=== PATIENT | female | born 1935 | race Caucasian/White ===

== ENCOUNTER 2017-10-17 05:15 | Day surgery (SDC) | payer OTHER, MEDICARE ==
[~2017-10-17] VITALS: Ht 152.4 cm; Wt 97.1 kg
[2017-10-17] MEDS ORDERED: CEFAZOLIN 1 GM IVPB PREMIX 50 ML IV ONE ×2 (05:50→07:00)
[2017-10-17] MEDS ORDERED: IOHEXOL 50 ML IV ONE (07:54)
[2017-10-17] MEDS ORDERED: ONDANSETRON HCL 4 MG/2 ML VIAL IVP PRN ×2 (08:15→20:15)
[2017-10-17] MEDS ORDERED: fentaNYL CITRATE/PF 100 MCG/2 ML AMP IVP PRN ×2 (08:15)
[2017-10-17] MEDS ORDERED: NEOSTIGMINE METHYLSULFATE 1 MG/ML, 10 ML VIAL IVP ONE (08:55)
[2017-10-17] MEDS ORDERED: NS IRRIG SOLN 1000 ML IR ONE (08:55)
[2017-10-17] MEDS ORDERED: GLYCOPYRROLATE 0.2 MG/ML VIAL IJ ONE (08:55)
[2017-10-17] MEDS ORDERED: EPINEPHrine 1 MG/ML AMP IV ONE (08:55)
[2017-10-17] MEDS ORDERED: PHENYLEPHRINE HCL 10 MG/ML VIAL (NEOSYNEPHRINE) IV ONE (08:55)
[2017-10-17] MEDS ORDERED: LR 1,000 ML IV.SOLN IV ONE (08:55)
[2017-10-17] MEDS ORDERED: BUPIVACAINE /PF 0.25% 30 ML VIAL INJ ONE (08:55)
[2017-10-17] MEDS ORDERED: SEVOFLURANE 15 MIN GAS INH ONE (08:55)
[2017-10-17] MEDS ORDERED: PROPOFOL 200MG/ 20ML VIAL (DIPRIVAN) IV ONE (08:55)
[2017-10-17] MEDS ORDERED: MIDAZOLAM HCL 5 MG/ML VIAL (VERSED) IV ONE (08:55)
[2017-10-17] MEDS ORDERED: D5/0.45 NS 1,000 ML IV SCH (08:55)
[2017-10-17] MEDS ORDERED: fentaNYL CITRATE/PF 100 MCG/2 ML AMP IVP ONE (08:55)
[2017-10-17] MEDS ORDERED: ROCURONIUM BROMIDE 10 MG/ML (ZEMURON) IV ONE (08:55)
[2017-10-17] MEDS ORDERED: HYDROmorphone 2 MG/ML VIAL IVP PRN (09:00)
[2017-10-17] MEDS ORDERED: HYDROcodone/ACETAMIN 5-325 MG TAB (NORCO/ VICODIN) PO PRN ×2 (09:00)
[2017-10-17] MEDS ORDERED: D5/0.45 NS 1,000 ML IV ONE (10:00)
[2017-10-17 10:50] VITALS: BP_SYST 140
[2017-10-17] MEDS ORDERED: OMEP20CA10 PO (11:14)
[2017-10-17] MEDS ORDERED: CEL20 PO (11:14)
[2017-10-17] MEDS ORDERED: GLU500 PO (11:14)
[2017-10-17] MEDS ORDERED: LIP10 PO (11:14)
[2017-10-17] MEDS ORDERED: LEVA15HF5 INH (11:14)
[2017-10-17] MEDS ORDERED: ASPI-1063 PO (11:14)
[2017-10-17] MEDS ORDERED: LEVALBUTEROL Tartrate 15 GM HFA. 45 mCg/Actuation INH PRN (11:15)
[2017-10-17] MEDS ORDERED: LOSA100T11 PO (11:17)
[2017-10-17] MEDS ORDERED: COMMUNICATION ORDER XX PRN (12:45)
[2017-10-17 13:01] VITALS: BP_SYST 144
[2017-10-17 16:45] VITALS: BP_SYST 160
[2017-10-17] MEDS ORDERED: LOSARTAN POTASSIUM 50 MG TABLET (COZAAR) ONE (17:04)
[2017-10-17] MEDS ORDERED: LOSARTAN POTASSIUM 50 MG TABLET (COZAAR) PO ONE (17:04)
[2017-10-17] MEDS: metFORMIN HCL 500 MG TABLET PO SCH (17:31)
[2017-10-17 19:10] VITALS: BP_SYST 116
[2017-10-18 00:17] VITALS: BP_SYST 119
[2017-10-18 08:00] VITALS: BP_SYST 142
[2017-10-18] MEDS ORDERED: CITALOPRAM HYDROBROMIDE 20 MG TABLET PO SCH (09:00)
[2017-10-18] MEDS ORDERED: OMEPRAZOLE 20 MG CAPSULE.DR (PriLOSEC) PO SCH (09:00)
[2017-10-18] MEDS ORDERED: LOSARTAN POTASSIUM 50 MG TABLET (COZAAR) PO SCH (09:00)
[2017-10-18] MEDS ORDERED: ATORVASTATIN 20 MG TABLET PO SCH (09:00)
[2017-10-18] MEDS: metFORMIN HCL 500 MG TABLET PO SCH (09:00)
[2017-10-18 11:32] VITALS: BP_SYST 135
[2017-10-18 11:37] VITALS: BP_SYST 133
== END 2017-10-18 11:50 | disposition home or self-care (01) ==
LOC: SDS 05:15 → SMU 10:04 → STU 12:56 → SDS 10-18 11:50
PROVIDERS: ATTEND Colon & Rectal Surgery
DX: K80.10 Calculus of gallbladder with chronic cholecystitis without obstruction (principal); I10 Essential (primary) hypertension; I65.29 Occlusion and stenosis of unspecified carotid artery; F03.90 Unspecified dementia, unspecified severity, without behavioral disturbance, psychotic disturbance, mood disturbance, and anxiety; K21.9 Gastro-esophageal reflux disease without esophagitis; I69.959 Hemiplegia and hemiparesis following unspecified cerebrovascular disease affecting unspecified side; E78.5 Hyperlipidemia, unspecified; F33.1 Major depressive disorder, recurrent, moderate; E11.40 Type 2 diabetes mellitus with diabetic neuropathy, unspecified; E11.39 Type 2 diabetes mellitus with other diabetic ophthalmic complication; H40.9 Unspecified glaucoma; M81.0 Age-related osteoporosis without current pathological fracture; Z86.73 Personal history of transient ischemic attack (TIA), and cerebral infarction without residual deficits; Z68.41 Body mass index [BMI] 40.0-44.9, adult; Z88.8 Allergy status to other drugs, medicaments and biological substances; Z82.49 Family history of ischemic heart disease and other diseases of the circulatory system; Z80.0 Family history of malignant neoplasm of digestive organs; Z84.89 Family history of other specified conditions; Z79.84 Long term (current) use of oral hypoglycemic drugs; Z79.899 Other long term (current) drug therapy; E66.9 Obesity, unspecified; Z82.3 Family history of stroke
CPT/HCPCS: 47563; 74300; 82962; 88304; C1727; C1758; J0171; J0690; J1170; J2250; J2370; J2405; J2704; J2710; J3010; J3490 ×2; J7120; Q9967; 76000